=== PATIENT | female | born 1940 | race Hispanic/Latino ===

== ENCOUNTER → 2021-06-01 | Outpatient (CLI) | payer MEDICARE, OTHER ==
[~2021-06-01] MED LIST: AMLODIPINE BESY10 MG PO; CLONIDINE HCL0.1 MG PO; CYMBALTA30 MG PO; DIGOXIN250 MCG PO; FAMOTIDINE20 MG PO; FENOFIBRATE54 MG PO; GLIMEPIRIDE2 MG PO; GLYBURIDE-METF1 EAC1 PO; HYDRALAZINE HCL10 MG; HYDROCHLOROTHIA25 MG PO; ISOSORBIDE MONO60 M1 PO; LASIX20 MG; LEVOTHYROXINE125 MCG PO; METOPROLOL SUC100 MG PO; NEXIUM40 MG PO; OMEPRAZOLE20 M1 PO; PACERONE100 MG; PAROXETINE HCL10 MG PO; RANITIDINE HCL300 MG PO; amiodarone PO
== END ==
LOC: CARD 10:20
PROVIDERS: ATTEND Podiatrist Foot & Ankle Surgery
DX: I87.2 Venous insufficiency (chronic) (peripheral) (principal); I82.811 Embolism and thrombosis of superficial veins of right lower extremity
CPT/HCPCS: 93922; 93925; 93970

== ENCOUNTER → 2021-06-06 | Outpatient (RCR) | payer MEDICARE, OTHER ==
[2021-05-23 14:38] LABS: BASOPHILS % 0.7 % (0.0-1.0); EOSINOPHILS # (AUTO) 0.4 (0.0-0.4); EOSINOPHILS % 7.2 % (0.0-6.0); HEMATOCRIT 44.1 % (34.2-44.1); LYMPHOCYTES # (AUTO) 1.4 (1.0-3.2); LYMPHOCYTES % 25.7 % (18.0-39.1); MEAN CORPUSCULAR HEMOGLOBIN 36.4 pg (28-32); MEAN CORPUSCULAR HGB CONC 31.7 g/dL (31-35); MEAN CORPUSCULAR VOLUME 114.5 fL (81-99); MONOCYTES # (AUTO) 0.7 (0.2-0.8); MONOCYTES % 11.9 % (4.4-11.3); NEUTROPHILS % 54.1 % (38.7-80.0); PLATELET COUNT 187 x10e3/uL (140-360); RED BLOOD COUNT 3.85 x10e6/uL (3.6-5.1)
[2021-05-23 14:56] LABS: ALBUMIN 3.2 g/dL (3.5-5.0); ALBUMIN/GLOBULIN RATIO 0.9 (0.8-2.0); ANION GAP 20.7 mmol/L (8-16); CREATININE, SERUM 6.5 mg/dL (0.57-1.11); POTASSIUM 4.7 mmol/L (3.5-5.1)
== END ==
LOC: WCC 05-23 13:00
PROVIDERS: ATTEND Podiatrist Foot & Ankle Surgery
DX: E11.622 Type 2 diabetes mellitus with other skin ulcer (principal); E11.628 Type 2 diabetes mellitus with other skin complications; L97.811 Non-pressure chronic ulcer of other part of right lower leg limited to breakdown of skin; L97.821 Non-pressure chronic ulcer of other part of left lower leg limited to breakdown of skin; L97.321 Non-pressure chronic ulcer of left ankle limited to breakdown of skin; I87.2 Venous insufficiency (chronic) (peripheral); R60.0 Localized edema; N18.6 End stage renal disease; I10 Essential (primary) hypertension; E03.8 Other specified hypothyroidism; X58.XXXA Exposure to other specified factors, initial encounter
CPT/HCPCS: 36415; 80053; 83036; 84134; 85025; 85651; 86140

== ENCOUNTER 2021-06-13 15:53 | Outpatient (RCR) | payer MEDICARE, OTHER | END 2021-07-06 | LOC: WCC 15:53 | PROVIDERS: ATTEND Podiatrist Foot & Ankle Surgery | DX: E11.622 Type 2 diabetes mellitus with other skin ulcer (principal); E11.628 Type 2 diabetes mellitus with other skin complications; L97.811 Non-pressure chronic ulcer of other part of right lower leg limited to breakdown of skin; L97.821 Non-pressure chronic ulcer of other part of left lower leg limited to breakdown of skin; I87.2 Venous insufficiency (chronic) (peripheral); R60.0 Localized edema; N18.6 End stage renal disease; I10 Essential (primary) hypertension; E03.8 Other specified hypothyroidism; X58.XXXA Exposure to other specified factors, initial encounter ==

== ENCOUNTER 2021-08-01 14:43 | Outpatient (RCR) | payer MEDICARE, OTHER ==
[~2021-08-01 14:43] MED LIST changes: +LIDOCAINE/PRILOCAINE 2.5-2.5% KIT ONE
== END 2021-08-06 ==
LOC: WCC 14:43
PROVIDERS: ATTEND Podiatrist Foot & Ankle Surgery
DX: E11.622 Type 2 diabetes mellitus with other skin ulcer (principal); E11.628 Type 2 diabetes mellitus with other skin complications; L97.811 Non-pressure chronic ulcer of other part of right lower leg limited to breakdown of skin; L97.821 Non-pressure chronic ulcer of other part of left lower leg limited to breakdown of skin; I87.2 Venous insufficiency (chronic) (peripheral); R60.0 Localized edema; N18.6 End stage renal disease; I10 Essential (primary) hypertension; E03.8 Other specified hypothyroidism; X58.XXXA Exposure to other specified factors, initial encounter

== ENCOUNTER → 2021-09-05 | Outpatient (RCR) | payer MEDICARE, OTHER ==
[~2021-09-05] MED LIST changes: +COLLAGENASE OINTMENT 30 GM TUBE ONE; +MUPIROCIN 2% OINT 22 GM TUBE ONE
== END ==
LOC: WCC 08-08 11:30
PROVIDERS: ATTEND Podiatrist Foot & Ankle Surgery
DX: E11.622 Type 2 diabetes mellitus with other skin ulcer (principal); E11.628 Type 2 diabetes mellitus with other skin complications; L97.821 Non-pressure chronic ulcer of other part of left lower leg limited to breakdown of skin; L97.811 Non-pressure chronic ulcer of other part of right lower leg limited to breakdown of skin; L97.511 Non-pressure chronic ulcer of other part of right foot limited to breakdown of skin; I87.2 Venous insufficiency (chronic) (peripheral); R60.0 Localized edema; N18.6 End stage renal disease; I10 Essential (primary) hypertension; E03.8 Other specified hypothyroidism; X58.XXXA Exposure to other specified factors, initial encounter

== ENCOUNTER 2021-09-26 08:23 | Outpatient (RCR) | payer MEDICARE, OTHER ==
[~2021-09-26 08:23] MED LIST changes: +LIDOCAINE VISC 2% SOLN 15 ML UDC ONE; -MUPIROCIN 2% OINT 22 GM TUBE ONE
[2021-09-26] MEDS ORDERED: MUPIROCIN 2% OINT 22 GM TUBE ONE (11:52)
== END 2021-10-06 ==
LOC: WCC 08:23
PROVIDERS: ATTEND Podiatrist Foot & Ankle Surgery
DX: E11.622 Type 2 diabetes mellitus with other skin ulcer (principal); E11.628 Type 2 diabetes mellitus with other skin complications; E11.621 Type 2 diabetes mellitus with foot ulcer; L97.821 Non-pressure chronic ulcer of other part of left lower leg limited to breakdown of skin; I87.2 Venous insufficiency (chronic) (peripheral); R60.0 Localized edema; N18.6 End stage renal disease; I10 Essential (primary) hypertension; E03.8 Other specified hypothyroidism; X58.XXXA Exposure to other specified factors, initial encounter

== ENCOUNTER 2021-10-31 08:35 | Outpatient (RCR) | payer MEDICARE, OTHER ==
[~2021-10-31 08:35] MED LIST changes: -LIDOCAINE VISC 2% SOLN 15 ML UDC ONE
[2021-10-31] MEDS ORDERED: MUPIROCIN 2% OINT 22 GM TUBE ONE (19:38)
[2021-10-31] MEDS ORDERED: LIDOCAINE/PRILOCAINE 2.5-2.5% KIT ONE (19:38)
== END 2021-11-06 ==
LOC: WCC 08:35
PROVIDERS: ATTEND Podiatrist Foot & Ankle Surgery
DX: E11.622 Type 2 diabetes mellitus with other skin ulcer (principal); E11.628 Type 2 diabetes mellitus with other skin complications; L97.821 Non-pressure chronic ulcer of other part of left lower leg limited to breakdown of skin; I87.2 Venous insufficiency (chronic) (peripheral); R60.0 Localized edema; N18.6 End stage renal disease; I10 Essential (primary) hypertension; E03.8 Other specified hypothyroidism; X58.XXXA Exposure to other specified factors, initial encounter

== ENCOUNTER 2021-11-21 09:28 | Outpatient (RCR) | payer MEDICARE, OTHER ==
[~2021-11-21 09:28] MED LIST changes: -COLLAGENASE OINTMENT 30 GM TUBE ONE
[2021-11-21] MEDS ORDERED: LIDOCAINE/PRILOCAINE 2.5-2.5% KIT ONE (13:12)
[2021-11-21] MEDS ORDERED: COLLAGENASE OINTMENT 30 GM TUBE ONE (13:12)
== END 2021-12-04 ==
LOC: WCC 09:28
PROVIDERS: ATTEND Podiatrist Foot & Ankle Surgery
DX: E11.622 Type 2 diabetes mellitus with other skin ulcer (principal); E11.628 Type 2 diabetes mellitus with other skin complications; E11.621 Type 2 diabetes mellitus with foot ulcer; L97.821 Non-pressure chronic ulcer of other part of left lower leg limited to breakdown of skin; I87.2 Venous insufficiency (chronic) (peripheral); R60.0 Localized edema; I10 Essential (primary) hypertension; N18.6 End stage renal disease; E03.8 Other specified hypothyroidism; X58.XXXA Exposure to other specified factors, initial encounter
CPT/HCPCS: 87071; 87075; 87205

== ENCOUNTER 2021-12-05 15:08 | Outpatient (RCR) | payer MEDICARE, OTHER ==
[~2021-12-05 15:08] MED LIST changes: +LIDOCAINE VISC 2% SOLN 15 ML UDC ONE
== END 2022-01-04 ==
LOC: WCC 15:08
PROVIDERS: ATTEND Podiatrist Foot & Ankle Surgery
DX: E11.622 Type 2 diabetes mellitus with other skin ulcer (principal); E11.628 Type 2 diabetes mellitus with other skin complications; E11.621 Type 2 diabetes mellitus with foot ulcer; L97.821 Non-pressure chronic ulcer of other part of left lower leg limited to breakdown of skin; I87.2 Venous insufficiency (chronic) (peripheral); R60.0 Localized edema; N18.6 End stage renal disease; I10 Essential (primary) hypertension; E03.8 Other specified hypothyroidism; X58.XXXA Exposure to other specified factors, initial encounter